=== PATIENT | female | born 1955 | race Caucasian/White ===

== ENCOUNTER 2017-07-17 18:55 | Emergency (ER) | payer MEDICAID ==
[2017-07-17 19:30] VITALS: BP 190/91
[2017-07-17] MEDS ORDERED: Diphtheria,Pertussis(Acell),Tetanus Vaccine 0.5 ML Syringe IM ONE (19:36)
--- NOTE | 2017-07-17 19:36 | EDM.PDOC ---
ED HPI GENERAL MEDICAL PROBLEM - General Chief Complaint: Bite:Animal, Insect Stated Complaint: PT HAS DOG BITE ON RT INDEX FINGER Time Seen by Provider: 07/17/17 19:31 Source of Information: Reports: Patient History Limitations: Reports: No Limitations - History of Present Illness INITIAL COMMENTS - FREE TEXT/NARRATIVE: HISTORY AND PHYSICAL: []52-year-old female presenting with a dog bite to index finger of her hand History of Present Illness: []Patient was cleaning up for the trash was trying to take it chicken bone away from her dog and dog bit her Dog has had all its shots The new puppy to her house Review of Systems: As per history of present illness and below otherwise all systems reviewed and negative. Past medical history: As per history of present illness and as reviewed below otherwise noncontributory. Surgical history: As per history of present illness and as reviewed below otherwise noncontributory. Social history: No reported history of drug or alcohol abuse. Family history: As per history of present illness and as reviewed below otherwise noncontributory. Physical exam: Alert and oriented female answering questions appropriately in full sentences without any shortness of breath last tetanus injection was more than 5 years ago HEENT: Atraumatic, normocehpalic, pupils reactive, negative for conjunctival pallor or scleral icterus, mucous membranes moist, throat clear, neck supple, nontender, trachea midline. Lungs: Clear to auscultation, breath sounds equal bilaterally, chest non tender. Heart: S1S2, regular, negative for clicks, rubs, or JVD. Abdomen: Soft, nondistended, nontender. Negative for masses or hepatossplenmegaly. Negative for costovertebral tenderness. Pelvis: Stable nontender. Genitourinary: Deferred. Rectal: Deferred Extremities: Atraumatic, negative for cords or calf pain. Neurovascular unremarkable. Neuro: Awake, alert, oriented. Cranial nerves II through XII unremarkable. Cerebellum unremarkable. Motor and sensory unremarkable throughout. Exam nonfocal. Diagnostics: [] Therapeutics: []Adacel Impression: [Dog bite index finger] Plan: []Keep area clean and dry Antibiotic therapy Follow-up with your primary care Return to the emergency department as directed and discussed Definitive disposition and diagnosis as appropriate pending reevaluation and review of above. Onset: Today, Sudden Duration: Minutes: Location: Reports: Upper Extremity, Right Right 2-Index finger Pain Score (Numeric/FACES): 3 - Related Data Allergies Allergy/AdvReac Type Severity Reaction Status Date / Time gluten Allergy Diarrhea Verified 07/17/17 19:30 lactose Allergy Diarrhea Verified 07/17/17 19:30 Penicillins Allergy Hives Verified 07/17/17 19:30 Sulfa (Sulfonamide Allergy Swelling Verified 07/17/17 19:30 Antibiotics) Bee Stings Allergy Swelling Uncoded 07/17/17 19:30 Home Meds: Home Meds Cephalexin [Keflex] 500 mg PO Q8H #21 cap 07/17/17 [Rx] buPROPion HCl [Wellbutrin SR] 150 mg PO DAILY 07/17/17 [History] Past Medical History HEENT History: Reports: Impaired Vision, Other (See Below) Other HEENT History: Double vision Cardiovascular History: Reports: Hypertension Gastrointestinal History: Reports: Hemorrhoids, Irritable Bowel Syndrome, Other (See Below) Other Gastrointestinal History: changes in bowel function Musculoskeletal History: Reports: Arthritis, Fibromyalgia Psychiatric History: Reports: Anxiety - Past Surgical History HEENT Surgical History: Reports: Cataract Surgery, LASIK, Oral Surgery Female Surgical History: Reports: Hysterectomy Musculoskeletal Surgical History: Reports: Other (See Below) Other Musculoskeletal Surgeries/Procedures:: Finger re-attachment Social & Family History - Tobacco Use Smoking Status *Q: Never Smoker Second Hand Smoke Exposure: No - Alcohol Use Days Per Week of Alcohol Use: 5 Number of Drinks Per Day: 1 Total Drinks Per Week: 5 - Recreational Drug Use Recreational Drug Use: No Drug Use in Last 12 Months: No ED ROS GENERAL - Review of Systems Review Of Systems: ROS reveals no pertinent complaints other than HPI. ED EXAM, ANIMAL BITE - Physical Exam Exam: See Below (See dictation) Course - Vital Signs Last Recorded V/S: Last Vital Signs Temp 36.9 C 07/17/17 19:26 Pulse 100 07/17/17 19:26 Resp 12 07/17/17 19:26 BP 190/91 H 07/17/17 19:26 Pulse Ox 94 L 07/17/17 19:26 Departure - Departure Time of Disposition: 19:33 Disposition: Home, Self-Care 01 Condition: Good Clinical Impression: Animal bite of finger Qualifiers: Encounter type: initial encounter Qualified Code(s): S61.259A - Open bite of unspecified finger without damage to nail, initial encounter - Discharge Information Prescriptions: Cephalexin [Keflex] 500 mg PO Q8H #21 cap Instructions: Animal Bite, [id number] Referrals: PCP,None [Primary Care Provider] - Additional Instructions: The following information is given to patients seen in the emergency department who are being discharged to home. This information is to outline your options for follow-up care. We provide all patients seen in our emergency department with a follow-up referral. The need for follow-up, as well as the timing and circumstances, are variable depending upon the specifics of your emergency department visit. If you don't have a primary care physician on staff, we will provide you with a referral. We always advise you to contact your personal physician following an emergency department visit to inform them of the circumstance of the visit and for follow-up with them and/or the need for any referrals to a consulting specialist. The emergency department will also refer you to a specialist when appropriate. This referral assures that you have the opportunity for followup care with a specialist. All of these measure are taken in an effort to provide you with optimal care, which includes your followup. Under all circumstances we always encourage you to contact your private physician who remains a resource for coordinating your care. When calling for followup care, please make the office aware that this follow-up is from your recent emergency room visit. If for any reason you are refused follow-up, please contact the [facility] emergency department at and asked to speak to the emergency department charge nurse. follow up with your primary care provider cephalenin tid X 1 week Return to ER as directed and discussed
== END 2017-07-17 20:02 | disposition home or self-care (01) ==
LOC: MW.ED 18:55
DX: S61.250A Open bite of right index finger without damage to nail, initial encounter (principal); I10 Essential (primary) hypertension; F41.9 Anxiety disorder, unspecified; Z88.0 Allergy status to penicillin; Z91.011 Allergy to milk products; Z88.2 Allergy status to sulfonamides; Z91.030 Bee allergy status; Z79.899 Other long term (current) drug therapy; Z23 Encounter for immunization; W54.0XXA Bitten by dog, initial encounter
CPT/HCPCS: 90471; 90715; 99283-25